=== PATIENT | female | born 1960 | race Two or more races ===

== ENCOUNTER 2023-02-28 14:25 | Emergency (ER) | payer MEDICAID ==
[~2023-02-28] VITALS: Ht 139.7 cm; Wt 65.9 kg
[2023-02-28 14:32] VITALS: TEMP 98.3
[2023-02-28] MEDS ORDERED: ACETAMINOPHEN 325 MG TABLET PO ONE (16:45)
[2023-02-28] MEDS ORDERED: IBUP-1492 PO (18:08)
[2023-02-28] MEDS ORDERED: ACET-3385 PO (18:08)
[2023-02-28 18:15] VITALS: BP 135/75; PULSE 65; RESP 12
== END 2023-02-28 18:38 | disposition home or self-care (01) ==
LOC: EMS 14:30
DX: S09.90XA Unspecified injury of head, initial encounter (principal); W19.XXXA Unspecified fall, initial encounter; Y93.89 Activity, other specified; Y92.89 Other specified places as the place of occurrence of the external cause; Y99.8 Other external cause status
CPT/HCPCS: 29105; 70450; 99284